=== PATIENT | female | born 1980 ===

== ENCOUNTER 2017-12-02 13:34 | Outpatient (CLI) | payer BC ==
--- NOTE | 2017-12-02 17:09 | RAD ---
CERVICAL SPINE 5 VIEWS: Date: 12/02/17 HISTORY: Neck pain. FINDINGS: Vertebral body heights are maintained. Disc space narrowing at the C5-6 level with minimal degenerati ve retrolisthesis. No abnormal translational motion. Mild osteophytosis throughout the vertebral bodi es and facets. Cervicothoracic junction is intact. Postsurgical sutures at the right lung apex. IMPRESSION: Degenerative changes at the C5-6 level. No acute osseous abnormalities are demonstrated. POS: TRACIE
--- NOTE | 2017-12-02 17:14 | MRI ---
MRI THORACIC SPINE WITH AND WITHOUT CONTRAST: Date: 12/02/17 Multiplanar, multisequential imaging of thoracic spine obtained. Postcontrast images were obtained af ter administration of 13 mL MultiHance. INDICATION: Syrinx of spinal cord. FINDINGS: There is evidence of a small syrinx in the lower cervical cord, which is incompletely evaluated on th is exam. It is seen at the C7-T1 level. There is a syrinx of the thoracic cord which begins at T3-T4 and extends to the T5-T6 disc. This thoracic cord syrinx measures up to 4-5 mm AP dimension at rosa l width. Thoracic cord otherwise unremarkable. There is no abnormal enhancement. No evidence of thoracic cord lesion identified on postcontrast exam. The thoracic vertebra maintain normal height and alignment and exhibit normal signal. At the T9-T10 d isc, there is an asymmetric bulge of the disc paracentrally on the left, flattening the anterior thec al sac on the left and abutting the anterior cord. No other significant disc bulge or disc protrusion seen in the thoracic spine. 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 No enhancement or abnormal cord lesion identified. POS: TRACIE
--- NOTE | 2017-12-02 17:29 | MRI ---
MRI CERVICAL SPINE WITH AND WITHOUT CONTRAST: 12/02/17 Multiplanar and multisequential images of the cervical spine obtained. Postcontrast images were obtai radha. INDICATIONS: Syrinx of spinal cord. There is a syrinx of the lower cervical cord beginning with mild central canal dilatation at C5 and e xtending to the T1 vertebra. This syrinx is most pronounced at the C7 level where it measures approxi mately 3 mm AP dimension. There is no abnormal enhancement seen within the cervical cord. No evidence of neoplasm or other cord lesion. The cervical vertebrae maintain height and alignment. There are degenerative changes in the mid cervi mildred spine with degenerative disc and end plate changes at C5-6 and small osteophytes. There is mild a symmetric disc bulge on the left at C3-4. At C4-5, diffuse disc bulge and spondylosis efface the anterior subarachnoid space. At C5-6, disc bulge and spondylosis efface the anterior subarachnoid space and abut the cord,. At C6-7, mild disc bulge and spondylosis centrally indents the thecal sac. IMPRESSION: 1. Small syrinx in the lower cervical cord as described above. No evidence of cord neoplasm. 2. Spondylitic changes at C4-5, C5-6, C6-7, as described above. POS: TRACIE
== END 2017-12-02 13:35 | disposition home or self-care (01) ==
LOC: BICMRI 13:34
PROVIDERS: ATTEND Physician Assistant Surgical
DX: M50.10 Cervical disc disorder with radiculopathy, unspecified cervical region (principal); G95.0 Syringomyelia and syringobulbia; M47.892 Other spondylosis, cervical region
CPT/HCPCS: 72050; 72156; 72157